=== PATIENT | female | born 1960 | race Caucasian/White ===

== ENCOUNTER 2022-03-04 15:57 | Emergency (ER) | payer MEDICAID ==
[~2022-03-04] VITALS: Ht 144.8 cm; Wt 59.9 kg
--- NOTE | 2022-03-04 15:59 | NUR ---
BIBDAUGHTER C/O L SIDED CHEST PRESSURE R/T L SHOULDER ON&OFF x 3DAYS ALSO C/O NECK PAIN AND HIGH BLOOD PRESSURE. 140/79 [facility] UPON CHECKING IN ED. TO ER BED 9, HOOKED TO MONITOR, CHANGED TO HOSP GOWN, WARM BLANKET PROVIDED, PATIENT AAO x 4. BREATHING EVEN AND UNLABORED. AWAITING MD LOPEZ
--- NOTE | 2022-03-04 16:00 | NUR ---
TO ER BED 9, BIBDAUGHTER C/O L SIDED CHEST PRESSURE R/T L SHOULDER ON&OFF x 3DAYS AND NECK PAIN, AAOX3, BREATHING EVEN AND NON LABORED, CONNECTED TO MONITOR, AWAITING MD ORDERS
--- NOTE | 2022-03-04 16:00 | NUR ---
Teofilo roberts in [facility] - 03/04/22 at 1646 by MICHA SALINE SHERYL ESTABLISHED, BLOOD DRAWN AND SENT TO LAB
--- NOTE | 2022-03-04 16:20 | NUR ---
DR BREWER AT BEDSIDE
[2022-03-04 17:14] LABS: BASOPHILS % (AUTO) 0.4 % (0.0-2.0); EOSINOPHILS % (AUTO) 1.1 % (0.0-6.0); HEMATOCRIT 49 % (33-45); HEMOGLOBIN 16.3 g/dL (11.5-14.8); LYMPHOCYTES # (AUTO) 2.3 K/uL (0.8-4.8); LYMPHOCYTES % (AUTO) 33.5 % (20.0-44.0); MEAN CORPUSCULAR HGB CONC 34 g/dl (31.0-36.0); MEAN CORPUSCULAR VOLUME 87 fL (82-100); MONOCYTES # (AUTO) 0.4 K/uL (0.1-1.30); MONOCYTES % (AUTO) 5.2 % (2.0-12.0); NEUTROPHILS # (AUTO) 4.2 K/uL (1.8-8.9); NEUTROPHILS % (AUTO) 59.8 % (43.0-81.0); PLATELET COUNT (AUTO) 209 K/uL (150-450); RED BLOOD CELL COUNT(AUTO) 5.59 MIL/uL (4.0-5.2)
[2022-03-04 17:18] LABS: CALCIUM, SERUM 9.7 mg/dL (8.5-10.1); CARBON DIOXIDE 31 mmol/L (21-32); CHLORIDE 104 mmol/L (98-107); CREATININE 0.6 mg/dL (0.6-1.3); GLUCOSE 124 mg/dL (74-106); POTASSIUM 3.9 mmol/L (3.5-5.1); SODIUM SERUM 143 mmol/L (136-145); UREA NITROGEN, BLOOD 21 mg/dL (7-18)
[2022-03-04] MEDS ORDERED: NITROGLYCERIN PACKET 1 GM PACKET TOP ONE (17:30)
[2022-03-04] MEDS ORDERED: ASPIRIN 325 MG TABLET PO ONE (17:30)
[2022-03-04] MEDS ORDERED: LOSA50TA39 PO (17:35)
[2022-03-04] MEDS ORDERED: ICOS1CAP PO (17:35)
[2022-03-04] MEDS ORDERED: ROSU10TA29 PO (17:35)
[2022-03-04] MEDS ORDERED: ERGO500093 PO (17:35)
[2022-03-04] MEDS ORDERED: ASPI-1420 PO (17:35)
[2022-03-04] MEDS ORDERED: AZIL40TA PO (17:39)
--- NOTE | 2022-03-04 17:40 | NUR ---
MOVE SHEET SUBMITTED.
--- NOTE | 2022-03-04 17:51 | NUR ---
COVID SWAB DONE AND SENT TO LAB
[2022-03-04] MEDS ORDERED: diphenhydrAMINE HCL 25 MG CAPSULE ONE (17:58)
[2022-03-04] MEDS ORDERED: NITROGLYCERIN PACKET 1 GM PACKET ONE (17:58)
--- NOTE | 2022-03-04 17:58 | NUR ---
[facility] CALLED [facility] [employer]UR[employer] OPERATOR PAGED.
[2022-03-04] MEDS ORDERED: ASPIRIN 325 MG TABLET ONE (17:59)
[2022-03-04] MEDS ORDERED: diphenhydrAMINE HCL 25 MG CAPSULE PO ONE (18:00)
--- NOTE | 2022-03-04 18:35 | NUR ---
PATIENT GOING AMA, DESIGN TRANSFERRER BRINK AWARE
--- NOTE | 2022-03-04 18:50 | NUR ---
Patient does not wish to proceed with medical care recommended by Dr. Swanson. Patient given information related to possible complications, up to and including , which could occur as a result of leaving the hospital at this time. Patient verbalizes understanding of risks involved due to leaving against medical advice. Patient has signed AMA form.
[2022-03-04 18:53] VITALS: BP 165/82
== END 2022-03-04 18:54 | disposition left against medical advice (07) ==
LOC: ER 16:22
DX: R07.9 Chest pain, unspecified (principal); I44.7 Left bundle-branch block, unspecified; Z88.6 Allergy status to analgesic agent; Z88.2 Allergy status to sulfonamides; I10 Essential (primary) hypertension; R06.02 Shortness of breath; Z20.822 Contact with and (suspected) exposure to COVID-19; E78.5 Hyperlipidemia, unspecified
CPT/HCPCS: 36415; 71045; 80048; 84484; 85025; 87081; 87426; 93005; 99285; C9803; Q0163